=== PATIENT | female | born 1975 | race Caucasian/White ===

== ENCOUNTER → 2016-11-14 | Outpatient (CLI) | payer MEDICARE ==
[~2016-11-14] MED LIST: ALBU8.5H5 IH; CLON-202 PO; DULO60CA25 PO; GABA-215 PO; GLIM4TAB32 PO; HYDR-2122 PO; HYDR-2164 PO; IBUP200C42 PO; METH-189 PO; SITA1TAB8 PO; [UNRECOGNIZED DRUG - CODE] IH; [UNRECOGNIZED DRUG - CODE] PO
--- NOTE | 2016-11-14 10:21 | DI ---
Indication: ITS.REASON: M25.519 LEFT SHOULDER PAIN PROCEDURE: MRI SHOULDER LEFT W/O CONTRAST: Encounter: Initial Comparison: None Technique: Multiplanar multisequence MR imaging of the left shoulder was performed without contrast. Findings: Musculotendinous units: There is increased signal intensity primarily in the supra and infraspinatus tendons with partial-thickness longitudinal tear of the infraspinatus tendon and distally partial thickness tear extending towards the insertional site of the anterior distal supraspinatus tendon. However, in the region of the infraspinatus, the tear appears to approach 60% thickness. Although a small fenestration would be difficult to exclude, a retracted tear is not apparent. Subscapularis tendon intact. Biceps tendon lies within the intertubercular groove and appears satisfactory. No focal muscular atrophy. Osseous elements: Subtle marrow edema and subcortical cystic change and perhaps erosion of the lateral aspect of the humeral head/greater tuberosity. No fracture identified. Articulations: Glenohumeral joint intact. Acromioclavicular joint demonstrates mild hypertrophic changes/osteoarthrosis. Ligamental labral structures: No definitive labral tear. Glenohumeral ligaments appear to be intact. Joint spaces: Small joint effusion. Mild subdeltoid subacromial bursitis. Impression: 1. Rotator cuff tendinopathy with partial-thickness tears of supraspinatus infraspinatus tendons as described above. 2. No definitive retracted full-thickness tear identified. 3. Small joint effusion and subdeltoid subacromial bursitis. 4. Acromioclavicular joint osteoarthrosis, mild to moderate degree severity. .
== END ==
LOC: IMA 08:33
PROVIDERS: ATTEND Physician Assistant
DX: S46.012A Strain of muscle(s) and tendon(s) of the rotator cuff of left shoulder, initial encounter (principal); X58.XXXA Exposure to other specified factors, initial encounter; Y93.9 Activity, unspecified; Y92.9 Unspecified place or not applicable; Y99.9 Unspecified external cause status; M19.012 Primary osteoarthritis, left shoulder; M25.412 Effusion, left shoulder; M75.52 Bursitis of left shoulder; M25.519 Pain in unspecified shoulder